=== PATIENT | male | born 1960 | race Two or more races ===

== ENCOUNTER 2019-01-05 05:30 | Day surgery (SDC) | payer OTHER ==
[~2019-01-05] VITALS: Ht 175.3 cm; Wt 79.4 kg
[2019-01-05 07:03] LABS: Basophils # (auto) 0.1 uL; Basophils % (auto) 0.9 % (0.0-2.0); Eosinophils # (auto) 0.2 uL; Hemoglobin 15.5 g/dL (13.5-17.5); Lymphocytes # (auto) 2.4 uL; Lymphocytes % (auto) 34.5 % (10.0-50.0); Mean Corpuscular Hemoglobin 29.4 pg (28.0-32.0); Mean Corpuscular Hgb Conc. 33.7 g/dL (32.0-36.0); Mean Corpuscular Volume 87.4 fL (80.0-100.0); Monocytes # (auto) 0.6 uL; Monocytes % (auto) 8.6 % (0.0-12.0); Neutrophils # (auto) 3.7 uL; Platelet Count (auto) 264 10^3/uL (140-450); Red Blood Cells 5.26 10^6/uL (4.5-5.90); Red Cell Distribution Width 14.1 % (11.8-14.3); White Blood Cell 6.9 10^3/uL (4.4-10.8)
[2019-01-05] MEDS ORDERED: ceFAZolin 1GM/50ML 50 ML IV ONE (07:13)
[2019-01-05 07:18] LABS: INR 1.03 (0.9-1.15)
[2019-01-05 07:22] LABS: Calcium 9.2 mg/dL (8.5-10.1); Potassium 3.8 mmol/L (3.5-5.1)
[2019-01-05 07:25] LABS: BUN/Creatinine Ratio 16.9
[2019-01-05] MEDS ORDERED: MIDAZOLAM HCL 1MG/1ML-2 ML VIAL ONE (08:05)
[2019-01-05] MEDS ORDERED: fentaNYL CITRATE 100 MCG/2 ML VL ONE (08:05)
[2019-01-05] MEDS ORDERED: ONDANSETRON HCL 4 MG/2 ML VIAL IV ONE (08:15)
[2019-01-05] MEDS ORDERED: ePHEDrine SULFATE 50 MG/ML AMP IV PRN (08:15)
[2019-01-05] MEDS ORDERED: LABETALOL HCL 5 MG/ML 4ML SYRINGE IV PRN (08:15)
[2019-01-05] MEDS ORDERED: KETOROLAC TROMETH 15 mg/ml 1ML VL IV ONE (08:15)
[2019-01-05] MEDS ORDERED: MIDAZOLAM HCL 1MG/1ML-2 ML VIAL IV PRN (08:15)
[2019-01-05] MEDS ORDERED: HYDROmorphone HCL 2 MG/ML VL IV PRN (08:15)
[2019-01-05] MEDS ORDERED: DexAMETHasone SOD PHOS 10MG/1ML VIAL INJ ONE (08:17)
[2019-01-05] MEDS ORDERED: PROPOFOL 10 MG/ML 20 ML IV ONE (08:21)
[2019-01-05 08:51] VITALS: BP 111/85
[2019-01-05] MEDS ORDERED: MORPHINE SULFATE 4 MG/ML SYR/VIAL IV ONE (10:00)
== END 2019-01-05 09:02 | disposition home or self-care (01) ==
LOC: SUR 05:30
PROVIDERS: ATTEND Urology
DX: R97.20 Elevated prostate specific antigen [PSA] (principal); I10 Essential (primary) hypertension; I42.9 Cardiomyopathy, unspecified; Z98.890 Other specified postprocedural states
CPT/HCPCS: 36415; 55706; 71045; 80048; 85025; 85610; 85730; J0690; J1100; J2250; J2704; J3010